=== PATIENT | male | born 1940 ===

== ENCOUNTER → 2017-03-23 | Outpatient (CLI) | payer MEDICARE ==
[2017-03-23 08:57] LABS: CH 30.5; CHCM 32.8; HCT 47.8 % (39.0-53.0); HDW 2.42; HGB 15.5 gm/dL (13.0-17.5); MCH 30.3 pg (25.0-35.0); MCHC 32.4 g/dL (31.0-37.0); MCV 93.5 fL (80.0-100.0); Mean Platelet Volume 6.7; RBC 5.11 m/uL (4.30-5.90); RDW 13.5 % (11.5-15.5); WBC 10.1 k/uL (3.8-10.6)
[2017-03-23 10:31] LABS: ALT 35 U/L (21-72); AST 27 U/L (17-59); Alkaline Phosphatase 116 U/L (38-126); Anion Gap 14 mmol/L; Blood Urea Nitrogen 23 mg/dL (9-20); Calcium 9.5 mg/dL (8.4-10.2); Carbon Dioxide 26 mmol/L (22-30); Chloride 106 mmol/L (98-107); Cholesterol 142 mg/dL (<200); Glucose 102 mg/dL (74-99); HDL Cholesterol 58 mg/dL (40-60); Non-African American GFR(MDRD) 59 (>60 ml/min/1.73 sqM); Potassium 4.3 mmol/L (3.5-5.1); Sodium 146 mmol/L (137-145); Total Bilirubin 0.6 mg/dL (0.2-1.3); Total Protein 7.4 g/dL (6.3-8.2); Triglycerides 172 mg/dL (<150)
[2017-03-23 13:35] LABS: Manual Review Performed; Nucleated Red Blood Cells 0 /100 WBC (0-0); Total Cells Counted 100
[2017-03-23 13:36] LABS: RBC Morphology Normal
[2017-03-23 14:03] LABS: Hemoglobin A1C 6.9 % (4.2-6.1)
== END | disposition home or self-care (01) ==
LOC: LABWHC1 07:33
PROVIDERS: ATTEND Internal Medicine Endocrinology, Diabetes & Metabolism
DX: E11.9 Type 2 diabetes mellitus without complications (principal); I10 Essential (primary) hypertension; E78.00 Pure hypercholesterolemia, unspecified; I25.10 Atherosclerotic heart disease of native coronary artery without angina pectoris; I44.1 Atrioventricular block, second degree
CPT/HCPCS: 36415; 80053; 80061; 83036; 84439; 84443; 85027

== ENCOUNTER 2017-03-27 11:39 | Day surgery (SDC) | payer MEDICARE ==
[~2017-03-27 11:39] MED LIST: LACTATED RINGERS 1,000 ML IV SCH; SODIUM CHLORIDE 0.9% 1,000 ML IV SCH; ceFAZolin 1,000 MG in SODIUM CHLORIDE 0.9% IRRIGATIO 250 ML IRRIGATION ONE; ceFAZolin 2 GM in SODIUM CHLORIDE 0.9% 100 ML IVPB ONE
[2017-03-27 12:25] LABS: Glucose,Whole Blood 126 mg/dL (75-99)
[2017-03-27] MEDS ORDERED: MIDAZOLAM 2 MG/2 ML VIAL ONE (13:52)
[2017-03-27] MEDS ORDERED: PROPOFOL 10 MG/ML 20 ML VIAL IV ONE (13:52)
[2017-03-27] MEDS ORDERED: fentaNYL (PF) 50 MCG/ML 2 ML AMP ONE (13:52)
[2017-03-27] MEDS ORDERED: LIDOCAINE 1% INJ 10MG/ML (20 ML MDV) ONE (13:52)
[2017-03-27] MEDS ORDERED: IV FLUID CONTINUATION 1,000 ML IV ONE (13:52)
[2017-03-27] MEDS ORDERED: IODIXANOL 270 MG/ML 50 ML ML IV ONE (14:08)
[2017-03-27] MEDS ORDERED: SODIUM CHLORIDE 0.9% 250 ML IV ONE (14:30)
[2017-03-27] MEDS ORDERED: LIDOCAINE 1% INJ 10MG/ML (20 ML MDV) SQ ONE ×2 (14:35→14:42)
[2017-03-27] MEDS ORDERED: IODIXANOL 320 MG/ML 100 ML IV ONE ×2 (15:06→15:08)
[2017-03-27] MEDS ORDERED: ACETAMINOPHEN TAB 325 MG TAB PO PRN (16:42)
[2017-03-27 17:22] LABS: Glucose,Whole Blood 86 mg/dL (75-99)
[2017-03-27 17:53] VITALS: RESP 18
[2017-03-27] MEDS ORDERED: ACETAMINOPHEN IV (For NPO) 1,000 MG in EMPTY BAG 1 BAG IVPB ONE (18:00)
--- NOTE | 2017-03-27 18:44 | PCN ---
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 He has no reversible causes for bradycardia. He has significant AV block. He complains of tiredness and fatigue and gets short of breath with exercise. He has a right bundle block and significant AV node disease with sudden AV block with bradycardia as well as 2:1 AV block with bradycardia with heart rates in the 30s with a high percentage of RV pacing anticipated. (RV pacing greater than 40 % is anticipated with dual-chamber pacing.) Therefore a biventricular pacemaker was advised. The patient was brought to the EP lab in a fasting state. Written informed consent was obtained prior to the procedure. The left shoulder area was prepped and draped as per protocol. Lidocaine 1% was used for local anesthesia. A 4 cm incision was made parallel to the deltopectoral groove, about 1.5 cm medial to it. Incision was carried down to the level of the pectoralis muscle and a subfascial pocket was made. Hemostasis was assured. The left ( ) vein was accessed at 3 separate points under fluoroscopy and via appropriate-sized introducer sheaths, 3 leads were positioned. The atrial lead was a [employer] Tendril [id number], 52 cm in length, and serial number [id number]. The P waves were 4.7 ms, pacing threshold 0.5 v at 0.5 ms, pacing impedance of 515 ohms. Ten-volt test is negative. The RV lead was a [employer] IsoFlex Optim 1948, 58 cm in length, and serial number is [id number]. Pacing thresholds were 0.5 v at 0.5 ms, R waves 12 mV and pacing 530 ohms. Ten-volt test was negative. The coronary sinus was cannulated. Coronary sinus venogram was performed. The patient had 2 lateral veins, but they did not extend beyond the mild LV, and he had a very tortuous origin of the coronary sinus os; every time a lead was positioned in these veins, it would retract very easily upon removal of the sheath. Therefore it was completely unstable. The middle cardiac vein was accessed and the lead was unstable in several locations. Finally a new lead with a different curvature was used to provide stability. Multiple tributaries were subselected, and finally the most stable one was used, and finally the lead was positioned in stable position. Once the sheath was removed, the leads remained very stable; however, along most of the middle cardiac vein, especially distally, diaphragmatic stimulation was noted with bipolar configurations as well as with LV-can configurations. Finally programming was performed on LV4 to RV ring. Thresholds were also elevated along the lateral as well as the middle cardiac veins and laterally and distally. In the final position, the threshold was 3.75 v at 1 ms. Pacing impedance was 700 ohms. Ten-volt test was negative. Lead was stable. The lead was secured to the underlying pectoralis fascia using 2 non-absorbable sutures. Pocket was irrigated with antibiotic solution. Leads were connected to the generator ([employer] Quadra MP [id number], serial number [id number].) Leads and the generator were then placed in the subfascial pocket and the wound was closed in 3 layers and dressed per protocol. RESULT: Successful biventricular pacemaker implantation for significant AV node disease with 2:1 AV block and severe bradycardia in the 30s without any reversible cause and anticipated high percentage of RV pacing (greater than 40%) . A biventricular pacemaker was successfully implanted. Stability was then ensured in most locations. Thresholds are high in most locations. Diaphragmatic stimulation was also ensured in most tributaries. Patient tolerated the procedure well without any acute complications. [facility]
--- NOTE | 2017-03-27 18:53 | PN ---
March 26, 2017 To: Dr. Gerard Louis Re: Dr. Ana Salinas Dear Gerard, I had the pleasure of seeing Dr. Ana Salinas in electrophysiology followup. 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 Thank you for entrusting me with the care of your patient. Warm regards. Sincerely, Montez Rai M.D. [facility]
[2017-03-27] MEDS: HYDROcodone/APAP 5-325MG 1 EACH TAB PO PRN (19:25)
[2017-03-27] MEDS: hydrALAZINE HCL 50 MG TAB PO SCH (20:01)
[2017-03-27] MEDS: ceFAZolin 2 GM in SODIUM CHLORIDE 0.9% 100 ML IVPB SCH (20:01)
[2017-03-27] MEDS: LOSARTAN 50 MG TAB PO SCH (20:02)
[2017-03-27 20:55] LABS: Glucose,Whole Blood 166 mg/dL (75-99)
[2017-03-27] MEDS ORDERED: INSULIN GLARGINE 100 UNIT/ML 10 ML VIAL SQ SCH (21:00)
[2017-03-28] MEDS: ceFAZolin 2 GM in SODIUM CHLORIDE 0.9% 100 ML IVPB SCH ×3 (01:57→14:15)
[2017-03-28] MEDS: HYDROcodone/APAP 5-325MG 1 EACH TAB PO PRN (02:03)
[2017-03-28] MEDS ORDERED: LEVOTHYROXINE 75 MCG TAB PO SCH (06:30)
[2017-03-28 06:58] LABS: Glucose,Whole Blood 127 mg/dL (75-99)
--- NOTE | 2017-03-28 07:11 | XR ---
EXAMINATION TYPE: XR chest 2V DATE OF EXAM: 03/28/2017 HISTORY: Lead placement check. REFERENCE: NONE. FINDINGS: There has been a midline sternotomy. There is a multilead pacing device in place via a left subclavian approach. Approximately overlies th e right atrium. 2 distal leads overlie the right ventricle. The lungs are clear. Pleural spaces are clear. Heart size is upper limits of normal. IMPRESSION: NO ACUTE INTRATHORACIC ABNORMALITY.
--- NOTE | 2017-03-28 07:19 | P.DS ---
Providers Attending physician: Montez Rai Primary care physician: Stated None Hospital Course: Patient is doing well postprocedure. He underwent a biventricular pacemaker for significant bradycardia secondary to significant AV node disease with 2-1 AV block intermittently with heart rates in the 30s, symptomatic. He doing well today vitals are stable afebrile 97.9F pulse rate in the 60s blood pressure 140/69 mmHg Heart sounds are normal no rub no gallop Breath sounds are normal and equal no rhonchi no crackles No JVD The pacemaker site is healing well that is minimal hematoma Impression Significant AV node disease resulting in significant bradycardia, symptomatic requiring permanent pacing. High percentage of RV pacing anticipated, much greater than 40%, almost close to 90-100% anticipated hence a biventricular pacemaker was implanted for preventing progression to pacing-induced cardio myopathy. Diabetes adult onset CAD, coronary artery bypass grafting Hypertension Plan: Discharge home after completion of IV antibiotics Chest x-ray report was reviewed Patient Condition at Discharge: Stable Plan - Discharge Summary New Discharge Prescriptions: No Action Atorvastatin [Lipitor] 10 mg PO DAILY Allopurinol [Zyloprim] 100 mg PO DAILY hydrALAZINE HCL [Apresoline] 50 mg PO BID Clopidogrel [Plavix] 75 mg PO DAILY Aspirin EC [Ecotrin Low Dose] 81 mg PO DAILY Levothyroxine Sodium [Synthroid] 75 mcg PO DIRECTED amLODIPine BESYLATE [Norvasc] 10 mg PO DAILY Levothyroxine Sodium [Synthroid] 100 mcg PO DIRECTED Losartan [Cozaar] 50 mg PO BID Multivitamin/Iron/Folic Acid [Centrum Adults Tablet] 1 tab PO DAILY Insulin Glargine,Hum.rec.anlog [Eileen Wahl] 25 units SQ HS INSULIN LISPRO (HumaLOG) [HumaLOG] 16 - 20 unit SQ AC-SUPPER Insulin Lispro [humaLOG Kwikpen] 12 unit SQ AC-BRKFST B Complex & C No.20/Folic Acid [Nephrocaps Softgel] 1 tab PO DAILY INSULIN LISPRO (HumaLOG) [HumaLOG] 12 unit SQ AC-LUNCH Topock-3 Fatty Acids/Fish Oil [Fish Oil 1,000 mg Capsule] 1 cap PO DAILY Cholecalciferol (Vitamin D3) [Vitamin D3] 2,000 unit PO DAILY Calcium Carbonate [Calcium] 600 mg PO DAILY Discharge Medication List Allopurinol [Zyloprim] 100 mg PO DAILY 03/22/17 [History] Aspirin EC [Ecotrin Low Dose] 81 mg PO DAILY 03/22/17 [History] Atorvastatin [Lipitor] 10 mg PO DAILY 03/22/17 [History] B Complex & C No.20/Folic Acid [Nephrocaps Softgel] 1 tab PO DAILY 03/22/17 [ History] Calcium Carbonate [Calcium] 600 mg PO DAILY 03/22/17 [History] Cholecalciferol (Vitamin D3) [Vitamin D3] 2,000 unit PO DAILY 03/22/17 [History] Clopidogrel [Plavix] 75 mg PO DAILY 03/22/17 [History] INSULIN LISPRO (HumaLOG) [HumaLOG] 12 unit SQ AC-LUNCH 03/22/17 [History] INSULIN LISPRO (HumaLOG) [HumaLOG] 16 - 20 unit SQ AC-SUPPER 03/22/17 [History] Insulin Glargine,Hum.rec.anlog [Toujeo Solostar] 25 units SQ HS 03/22/17 [ History] Insulin Lispro [humaLOG Kwikpen] 12 unit SQ AC-BRKFST 03/22/17 [History] Levothyroxine Sodium [Synthroid] 75 mcg PO DIRECTED 03/22/17 [History] Levothyroxine Sodium [Synthroid] 100 mcg PO DIRECTED 03/22/17 [History] Losartan [Cozaar] 50 mg PO BID 03/22/17 [History] Multivitamin/Iron/Folic Acid [Centrum Adults Tablet] 1 tab PO DAILY 03/22/17 [ History] Topock-3 Fatty Acids/Fish Oil [Fish Oil 1,000 mg Capsule] 1 cap PO DAILY [History] amLODIPine BESYLATE [Norvasc] 10 mg PO DAILY 03/22/17 [History] hydrALAZINE HCL [Apresoline] 50 mg PO BID 03/22/17 [History]
[2017-03-28] MEDS ORDERED: INSULIN LISPRO (humaLOG) 300 UNIT/3 ML VIAL SQ SCH ×2 (07:30→12:30)
[2017-03-28] MEDS: LOSARTAN 50 MG TAB PO SCH (08:13)
[2017-03-28] MEDS: hydrALAZINE HCL 50 MG TAB PO SCH (08:13)
[2017-03-28] MEDS ORDERED: CLOPIDOGREL 75 MG TAB PO SCH (09:00)
[2017-03-28] MEDS ORDERED: ALLOPURINOL 100 MG TAB PO SCH (09:00)
[2017-03-28] MEDS ORDERED: amLODIPine 10 MG TAB PO SCH (09:00)
[2017-03-28] MEDS ORDERED: ASPIRIN 81 MG CHEW PO SCH (09:00)
[2017-03-28] MEDS ORDERED: ATORVASTATIN 10 MG TAB PO SCH (09:00)
[2017-03-28 11:38] VITALS: BMI 31.9
[2017-03-28 11:57] VITALS: BP 168/70; PULSE 60; TEMP 97.9
[2017-03-28 12:08] LABS: Glucose,Whole Blood 135 mg/dL (75-99)
[2017-03-29] MEDS ORDERED: LEVOTHYROXINE 100 MCG TAB PO SCH (06:30)
== END 2017-03-28 15:35 | disposition home or self-care (01) ==
LOC: CATHEP 11:39 → 3OBS 16:33 → CATHEP 03-28 15:35
PROVIDERS: ATTEND Internal Medicine Clinical Cardiac Electrophysiology
DX: R00.1 Bradycardia, unspecified (principal); I45.10 Unspecified right bundle-branch block; I25.10 Atherosclerotic heart disease of native coronary artery without angina pectoris; I11.9 Hypertensive heart disease without heart failure; Z87.891 Personal history of nicotine dependence; Z95.1 Presence of aortocoronary bypass graft; G47.33 Obstructive sleep apnea (adult) (pediatric); E11.9 Type 2 diabetes mellitus without complications; Z79.4 Long term (current) use of insulin; E07.9 Disorder of thyroid, unspecified; M10.9 Gout, unspecified; Z79.02 Long term (current) use of antithrombotics/antiplatelets; Z79.82 Long term (current) use of aspirin; Z79.899 Other long term (current) drug therapy
CPT/HCPCS: 33225; 33208; 71020; C1892 ×2; C1730; C1769 ×2; C1898 ×2; C1900; C2621; J2250; Q9966; Q9967; J0690 ×3; J2001; J3010; J2704

== ENCOUNTER → 2022-10-06 | Outpatient (CLI) | payer MEDICARE ==
[2022-10-06 22:33] LABS: HCT 47.6 % (39.6-50.0); HGB 14.9 g/dL (13.0-17.0); MCH 29.4 pg (27.0-32.0); MCHC 31.3 g/dL (32.0-37.0); MCV 93.9 fL (80.0-97.0); Mean Platelet Volume 9.9 fL (9.5-12.2); NRBC Per 100 WBC 0 /100 WBCS (0.0-0.0); Platelet Count 260 X 10*3/uL (140-440); RBC 5.07 X 10*6/uL (4.40-5.60); RDW 13.9 % (11.5-14.5); WBC 8.82 X 10*3/uL (4.50-10.00)
[2022-10-06 23:24] LABS: African American GFR (CKD) 60.3 (60.0-200.0); Anion Gap 13.3 mmol/L (10.00-18.00); Blood Urea Nitrogen 19.8 mg/dL (9.0-27.0); Carbon Dioxide 26.3 mmol/L (20.0-27.5); Potassium 4.1 mmol/L (3.5-5.5)
== END | disposition home or self-care (01) ==
LOC: LABPAT 12:34
PROVIDERS: ATTEND Internal Medicine Clinical Cardiac Electrophysiology
DX: Z01.812 Encounter for preprocedural laboratory examination (principal); I25.10 Atherosclerotic heart disease of native coronary artery without angina pectoris
CPT/HCPCS: 80051; 82565; 84520; 85027

== ENCOUNTER 2022-10-24 07:19 | Day surgery (SDC) | payer MEDICARE ==
[2022-10-20 18:05] VITALS: BMI 32.4
[~2022-10-24 07:19] MED LIST changes: -LACTATED RINGERS 1,000 ML IV SCH; +VANCOMYCIN 1,400 MG in SODIUM CHLORIDE 0.9% 250 ML IVPB ONE; +VANCOMYCIN 1,500 MG in SODIUM CHLORIDE 0.9% 500 ML 500 ML IVPB ONE; +ceFAZolin 1 GM in SODIUM CHLORIDE 0.9% IRRIG BTL 250 ML IRRIGATION PRN; -ceFAZolin 1,000 MG in SODIUM CHLORIDE 0.9% IRRIGATIO 250 ML IRRIGATION ONE; -ceFAZolin 2 GM in SODIUM CHLORIDE 0.9% 100 ML IVPB ONE
[2022-10-24 07:51] LABS: Glucose,Whole Blood 132 mg/dL (70-110)
[2022-10-24 07:56] VITALS: RESP 18; TEMP 98.9
[2022-10-24] MEDS ORDERED: MIDAZOLAM 2 MG/2 ML VIAL ONE (10:52)
[2022-10-24] MEDS ORDERED: fentaNYL (PF) 50 MCG/ML 2 ML AMP ONE (10:52)
[2022-10-24] MEDS ORDERED: LIDOCAINE 1% INJ 10MG/ML (30 ML VIAL-PF) SQ ONE ×2 (11:48→11:49)
[2022-10-24] MEDS ORDERED: ACETAMINOPHEN TAB 325 MG TAB PO PRN (12:44)
[2022-10-24] MEDS ORDERED: ACETAMINOPHEN IV (For NPO) 1,000 MG in EMPTY BAG 1 BAG IVPB ONE (12:44)
--- NOTE | 2022-10-24 13:02 | P.EPPROC ---
- EP Procedure Note Electrophysiology Procedure Note: Diagnosis Biventricular pacemaker generator at [facility] Gen. change Procedure LV/ biventricular pacemaker generator explant followed by implantation Details Patient was brought to the EP lab in a fasting state. Written informed consent was obtained prior to the procedure. Conscious sedation provided by anesthesia team IV antibiotics administered including vancomycin. Local anesthesia administered. A 4 cm incision made in the pectoral area. Subfascial pocket made. Atrial lead position chronically the right atrial appendage. 0.5 V at 0.5 ms, P waves 3.4 mV and pacing impedance 390 ohms RV lead position chronic in the RV apex. 0.5 V at 0.5 ms, R waves greater than 12 mV and pacing impedance 600 ohms LV lead positioned chronically in the LV vein. Lead thresholds were interrogated in different vectors Distal LV tip 1 to can threshold is 1.9 V at 1 ms Distal LV tip 1 to RV ring is 2.4% 1 ms Proximal 4- Can is 2.5 V at 1 ms Proximal 4-RV ring is 3.5 V at 1 ms Distal LV tip is in the mid LV on fluoroscopy and hence distal LV tip to Can was selected for LV pacing This also has the lowest threshold at 1.9 V at 1 ms Biventricular pacemaker device connected to the leads and placed in the subfascial pocket Patient tolerance the procedure well without acute complications Cine fluoroscopy was performed to evaluate the position of the for LV poles along the left ventricle The following vectors was selected based on fluoroscopy and EGMS Biventricular pacemaker device connected to the leads and placed in the subfascial pocket Patient tolerated the procedure well without acute complications
[2022-10-24 15:27] VITALS: BP 153/76; PULSE 64
[2022-10-24] MEDS ORDERED: INSULIN ASPART (NovoLOG) 100 UNIT/ML VIAL SQ SCH (17:30)
[2022-10-25] MEDS ORDERED: INSULIN ASPART (NovoLOG) 100 UNIT/ML VIAL SQ SCH (12:30)
== END 2022-10-24 16:52 | disposition home or self-care (01) ==
LOC: CATHEP 07:19
PROVIDERS: ATTEND Internal Medicine Clinical Cardiac Electrophysiology
DX: I44.30 Unspecified atrioventricular block (principal); I25.10 Atherosclerotic heart disease of native coronary artery without angina pectoris; I11.0 Hypertensive heart disease with heart failure; I50.9 Heart failure, unspecified; E78.5 Hyperlipidemia, unspecified; E11.9 Type 2 diabetes mellitus without complications; E07.9 Disorder of thyroid, unspecified; Z95.1 Presence of aortocoronary bypass graft; Z79.82 Long term (current) use of aspirin; Z79.899 Other long term (current) drug therapy; Z79.890 Hormone replacement therapy
CPT/HCPCS: 33229; J3370; J0690; J2001; J0131